=== PATIENT | male | born 1960 | race Caucasian/White ===

== ENCOUNTER 2024-07-08 07:53 | Day surgery (SDC) | payer OTHER ==
[~2024-07-08] VITALS: Ht 170.2 cm; Wt 69.4 kg
[~2024-07-08 07:53] MED LIST: ALBUTEROL-BUDESONIDE IN; ARICEPT PO; ARTHRITIS PAIN650 MG PO; CLOTRIMAZOLE13 EX; DICLOFENAC SODIUM; FLEXERIL5 M1 PO; HURRICAINE201 MT; HYDROCORTISONE1 % EX; LOTRIMIN AF JOCK1 %; LOVAZA1 CAP PO; MECLIZINE25 MG PO; MELATONIN3 M1 PO; MELOXICAM15 MG PO; MILK OF MAGNES7.75 % PO; MOTRIN800 MG PO; MUCINEX600 MG PO; MULTI VIT PO; NEURONTIN600 MG PO; NICODERM C21 MG/242; PREPARATIO H RE; PROTONIX40 M2 PO; ROSUVASTATIN CA10 MG PO; TRAMADOL HYDROC50 M1 PO; TRAZODONE50 MG PO; VIAGRA50 MG PO; VITAMIN D32000 UNI1 PO; WIXELA INHUB 251 AER; [UNRECOGNIZED DRUG - OTHER]
[2024-07-08] MEDS ORDERED: LIDOCAINE HCL 1% (10MG/ML) 100 MG/10 ML MDV ONE (08:34)
[2024-07-08] MEDS ORDERED: Iopamidol 61% 5 ML SYR IV ONE (08:35)
[2024-07-08] MEDS ORDERED: SODIUM CHLORIDE 20 ML/VIAL SDV ONE (08:35)
[2024-07-08 09:19] VITALS: BP 150/87
== END 2024-07-08 09:15 | disposition home or self-care (01) | DRG 93 ==
LOC: ORM 07:53
PROVIDERS: ATTEND Student in an Organized Health Care Education/Training Program
DX: G89.4 Chronic pain syndrome (principal); M54.16 Radiculopathy, lumbar region
CPT/HCPCS: J1100; Q9967